=== PATIENT | male | born 1960 | race Caucasian/White ===

== ENCOUNTER 2024-12-07 15:55 | Emergency (ER) | payer BC | END 2024-12-07 18:33 | disposition home or self-care (01) | LOC: JP.ED 15:55 | DX: M96.89 Other intraoperative and postprocedural complications and disorders of the musculoskeletal system (principal); Z88.0 Allergy status to penicillin; Z79.899 Other long term (current) drug therapy | CPT/HCPCS: 99282 ==

== ENCOUNTER 2024-12-14 22:14 | Emergency (ER) | payer BC ==
[2024-12-15] MEDS: Na Phos,M-B/Na Phos,DI-B 60 ML, Mineral Oil 50 ML, Docusate Sodium 400 MG, Magnesium Ci... RECTAL ONE (00:47)
[2024-12-15] MEDS: Sodium Phosphate,Monobasic/Sodium Phosphate,Dibasic Enema 133 ML Bottle RECTAL ONE (00:58)
== END 2024-12-15 01:53 | disposition home or self-care (01) ==
LOC: JP.ED 22:14
DX: K59.00 Constipation, unspecified (principal); R33.9 Retention of urine, unspecified; Z79.899 Other long term (current) drug therapy; Z88.0 Allergy status to penicillin
CPT/HCPCS: 51701; 99283; A9270; C1758